=== PATIENT | female | born 1970 | race Caucasian/White ===

== ENCOUNTER 2018-03-29 05:39 | Day surgery (SDC) | payer OTHER ==
[~2018-03-29] VITALS: Ht 170.2 cm; Wt 73.0 kg
--- NOTE | ~2018-03-29 | EKG ---
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
--- NOTE | ~2018-03-29 | O ---
[address] [place] [address] OPERATIVE REPORT Name: THERESE HASTINGS Room #: [facility].#: [id number] Admission: 03/29/18 Attend Phys: Barber Padilla MD Discharge: 03/29/18 Date of : 68 Report #: [id number] THIS REPORT FOR: //name// CC: Dr. Darlyn Echeverria Mayra TeixeiraMaki Padilla DATE OF SERVICE: 03/29/2018 PATIENT OF: Dr. Barber Padilla and Dr. Darlyn Davis. PREOPERATIVE DIAGNOSIS: Ventral incisional hernia. POSTOPERATIVE DIAGNOSIS: Incarcerated ventral incisional hernia. PROCEDURE: Repair of an incarcerated ventral incisional hernia with Ventralex ST hernia patch. SURGEON: Barber Padilla M.D. ANESTHESIA: Local IV sedation. DESCRIPTION OF PROCEDURE: The patient was brought to the operating room and placed on operative table in the supine position. Sequential compression devices were in place for DVT prophylaxis. There was no indication for preoperative antibiotics. The patient underwent IV sedation. The abdomen was then prepped and draped in a sterile fashion. Skin and subcutaneous tissue around the umbilicus was then infiltrated with 0.5% Marcaine and 1% Xylocaine in a 1:1 mixture. A transverse supraumbilical skin incision was then performed using a #15 scalpel blade. Hemostasis obtained using electrocautery. Dissection was carried down to the hernia sac, which was dissected free, opened and some incarcerated omentum was reduced back into the abdomen. The hernia sac was dissected free and excised. There were two defects, one above the umbilicus and one below the umbilicus, with a small bridge of fascia in between. I decided to excise that bridge of fascia and make it one hernia defect. This measured about 4 cm x 5 cm in diameter. A medium Ventralex ST hernia patch was then inserted intra-abdominally and secured circumferentially with transfascial 0 Prolene sutures. The fascia was then closed over the mesh using interrupted [id number] 0 Prolene sutures. The tails on the strap from the hernia patch were cut and secured superiorly and inferiorly with simple interrupted 2-0 Vicryl sutures. The umbilicus was tacked back to the fascia with a 2-0 Vicryl suture. Deep and superficial subcutaneous tissue was then reapproximated using simple interrupted 2-0 Vicryl and 2-0 chromic sutures. The skin was then closed using running 4-0 subcuticular Vicryl stitch. The wound was then dressed with Dermabond, Telfa, 4 x 4 gauze, sponge and tape. The patient was then taken to [address] [address] OPERATIVE REPORT Name: THERESE HASTINGS Room #: DEP [facility] Giovani.Stef#: [id number] Admission: 03/29/18 Attend Phys: Barber Padilla MD Discharge: 03/29/18 Date of : 68 Report #: [id number] the recovery room awake, alert and in good condition. Estimated blood loss was approximately 10 mL and the patient tolerated procedure well. All sponge, lap and instrument counts correct x 2. <ELECTRONICALLY SIGNED> By: Barber Padilla MD 03/30/18 1507 1058 1145 Barber Padilla MD /nt
[~2018-03-29 05:39] MED LIST: ATENOLOL 25 MG25 M1 PO; COMBIPATCH 0.01 EACH TOP; DEPAKOTE ER500 MG PO; LAMOTRIGINE ODT50 MG PO; SPIRONOLACTONE50 MG PO; TIROSINT112 MCG PO; ZOLOFT50 MG PO
[2018-03-29 06:38] VITALS: BP 112/68
[2018-03-29 06:53] LABS: CALCIUM 9.3 mg/dL (8.5-10.1); CREATININE 0.8 mg/dL (0.6-1.0)
[2018-03-29] MEDS ORDERED: HYDROCODONE-AP1 EAC6 PO (11:02)
[2018-03-29 11:10] VITALS: BP 112/68
== END 2018-03-29 11:30 | disposition home or self-care (01) ==
LOC: TBA 05:39 → OR 05:39
PROVIDERS: Surgery
DX: K43.0 Incisional hernia with obstruction, without gangrene (principal); F31.9 Bipolar disorder, unspecified; F41.9 Anxiety disorder, unspecified; Z98.890 Other specified postprocedural states; Z87.891 Personal history of nicotine dependence; Z79.899 Other long term (current) drug therapy; Z88.0 Allergy status to penicillin
CPT/HCPCS: 50010; 50101; 50130; 50386; 50417; 54118; 56524; 56525; 56526; 62110; 62850; 70005

== ENCOUNTER 2018-03-30 14:37 | Inpatient (IN) | payer OTHER ==
[~2018-03-30] VITALS: Ht 170.2 cm; Wt 72.6 kg
--- NOTE | ~2018-03-30 | H ---
[facility] [place] [address] HISTORY AND PHYSICAL Name: THERESE HASTINGS Room #: 456-P [facility]..#: [id number] Admission: 03/30/18 Attend Phys: Barber Padilla MD Discharge: 03/31/18 Date of : 68 Report #: [id number] THIS REPORT FOR: //name// CC: Bre Padilla DATE OF SERVICE: 03/30/[address] Barber Padilla. CHIEF COMPLAINT: Abdominal pain, nausea and vomiting. HISTORY OF PRESENT ILLNESS: The patient is a 47-year-old white female who underwent a repair of a ventral incisional hernia with mesh on 03/29/2018. She was discharged from the hospital, postoperatively doing well. Overnight, she developed abdominal pain that was out of control along with nausea and vomiting which prohibited her from taking oral pain medicines. She presented to the Emergency Room with [id number] postoperative pain, nausea and vomiting. No fever or chills. She has been passing some gas. No diarrhea, no dysuria. She was seen in the Emergency Department by Dr. Zhang who recommended admission for control of pain, nausea and vomiting. PAST MEDICAL HISTORY: SVT, depression, anxiety, bipolar, history of Graves disease, status post radioactive iodine treatment. Tonsillectomy, two C-sections, laparoscopy for ovarian cyst removal in 2018. Breast augmentation. MEDICATIONS: [place], levothyroxine, atenolol, sertraline, lamotrigine, spironolactone, divalproex, estradiol ALLERGIES: PENICILLIN. FAMILY HISTORY: Noncontributory. SOCIAL HISTORY: , does not smoke or drink alcohol. REVIEW OF SYSTEMS: Pertinent positives as above. Full review of systems otherwise negative. PHYSICAL EXAMINATION: GENERAL: Well-developed, well-nourished white female, in no acute distress. VITAL SIGNS: Stable. She is afebrile. HEENT: Mucous membranes are dry, pale. NECK: No adenopathy. No thyromegaly. LUNGS: Clear to auscultation bilaterally. Normal excursion. [facility] [address] [place] [address] HISTORY AND PHYSICAL Name: THERESE HASTINGS Room #: 456-P [facility]#: [id number] Admission: 03/30/18 Attend Phys: Barber Padilla MD Discharge: 03/31/18 Date of : 68 Report #: [id number] CARDIOVASCULAR: Regular rate and rhythm. No murmurs, S3, S4, no PMI. ABDOMEN: Soft, flat, tender. Incision is clean, dry and intact. No rebound or guarding. No palpable masses. EXTREMITIES: No clubbing, cyanosis or edema. NEUROLOGIC: Intact with a clear mental status. IMPRESSION: A 47-year-old white female with postoperative nausea, vomiting and pain out of control. PLAN: She will be admitted, IV hydration, antiemetics, parenteral narcotics for pain control. Once her pain, nausea and vomiting are under control, she is able to tolerate p.o., we will hopefully be able to discharge home. <ELECTRONICALLY SIGNED> By: Barber Padilla MD 03/31/18 1434 0900 0937 Barber Padilla MD /nt
[~2018-03-30 14:37] MED LIST changes: +HYDROCODONE-AP1 EAC6 PO
[2018-03-30 14:40] VITALS: BP 128/74
[2018-03-30 15:02] LABS: ABSOLUTE NEUTROPHILS 10.9 thou/uL (1.4-8.2); BASOPHILS 0.3 % (0.0-2.0); EOSINOPHILS 0.7 % (0.0-3.0); HEMATOCRIT 38.2 % (37.0-47.0); HEMOGLOBIN 13.5 gm/dL (12.0-15.0); LYMPHOCYTES 10.7 % (24.0-44.0); MCH 29.5 pg (26.0-34.0); MCHC 35.2 g/dL (28.0-37.0); MCV 83.9 fL (80.0-100.0); MONOCYTES 6.6 % (1.0-8.0); PLATELET COUNT 163 thou/uL (150-400); POLYS 81.7 % (36.0-66.0); RBC 4.56 mil/uL (4.20-5.00); RDW 13.1 % (10.5-14.5); WBC 13.4 thou/uL (4.0-11.0)
[2018-03-30 15:09] LABS: CALCIUM 9.7 mg/dL (8.5-10.1); CREATININE 0.8 mg/dL (0.6-1.0); POTASSIUM 3.7 mmol/L (3.5-5.1)
[2018-03-30 15:15] LABS: ALBUMIN 4.1 g/dL (3.4-5.0); DIRECT BILIRUBIN 0.1 mg/dL (<0.1-0.3); TOTAL BILIRUBIN 0.6 mg/dL (<0.1-1.0); TOTAL PROTEIN 7.9 g/dL (6.4-8.2)
[2018-03-30 15:31] LABS: URINE BILIRUBIN NEGATIVE (Negative); URINE BLOOD 2+ (Negative); URINE CLARITY CLEAR; URINE COLOR YELLOW; URINE GLUCOSE-RANDOM* NEGATIVE (Negative); URINE KETONES 2+ (Negative); URINE LEUKOCYTES NEGATIVE (Negative); URINE NITRITE NEGATIVE (Negative); URINE PROTEIN (DIPSTICK) NEGATIVE (Negative); URINE UROBILINOGEN 0.2 E.U./dl (0.2-1.0)
[2018-03-30 16:14] VITALS: BP 114/62
[2018-03-30 21:26] VITALS: BP 133/88
[2018-03-30 21:49] VITALS: BP 112/66
[2018-03-31 04:10] VITALS: BP 117/69
[2018-03-31 07:21] VITALS: BP 128/68
[2018-03-31] MEDS ORDERED: ONDANSETRON HCL4 M2 PO (09:04)
[2018-03-31 09:53] VITALS: BP 128/68
== END 2018-03-31 10:42 | disposition home or self-care (01) | DRG 948 ==
LOC: ER 14:37 → 4W 16:06 → EROBS 16:06 → 4W 21:35 → ENTRNSPT 03-31 10:05 → EDTRNSPTSTS 03-31 10:09 → 4W 03-31 10:42
PROVIDERS: Emergency Medicine
DX: G89.18 Other acute postprocedural pain (principal); F41.9 Anxiety disorder, unspecified; F31.9 Bipolar disorder, unspecified; Z88.0 Allergy status to penicillin; Z79.899 Other long term (current) drug therapy; Z87.891 Personal history of nicotine dependence; Z91.013 Allergy to seafood
CPT/HCPCS: 10040